=== PATIENT | male | born 1970 | race Caucasian/White ===

== ENCOUNTER 2019-12-31 14:25 | Emergency (ER) | payer MEDICAID, SELFPAY ==
[2019-12-31 14:51] VITALS: BP 149/95; PULSE 78; RESP 21; TEMP 36.5; O2SAT 96; BMI 25.0
[2019-12-31 14:59] LABS: UTC Influenza A Antigen Negative (Negative); UTC Strep Screen (Rapid) Positive (Negative)
[2019-12-31 15:00] LABS: UTC Influenza B Antigen Negative (Negative)
--- NOTE | 2019-12-31 15:24 | HMH.EDUTC ---
[facility] Disposition Clinical Impression: Strep throat Disposition: Home, Self-Care Condition on Discharge: Good Instructions: Strep Throat, DI for Strep Throat Additional Instructions: Drink plenty of fluids. Take tylenol or ibuprofen for pain or fever. Take the medications as directed. Follow up with your regular doctor. GO TO THE ER FOR ANY WORSENING SYMPTOMS Throw your tooth brush away and get a new one. Prescriptions: Amoxicillin/Potassium Clav [Augmentin 875-125 Tablet] 1 tab PO Q12H 10 Days #20 tab Transmission Status: [facility] Referrals: PCP,No [Primary Care Provider] - Forms: Work/School Release Time of Disposition: 15:26 Medical Decision Making - Medical Records Medical records reviewed: No: I reviewed the patient's medical records. - Yunier Inquiry Pt receiving controlled substance: No Vital Signs: 12/31/19 14:51 12/31/19 15:33 Temperature 97.7 F 97.7 F Temperature Source Oral Pulse Rate 78 Pulse Rate [Right Brachial] 78 Respiratory Rate 21 21 Blood Pressure 149/95 H Blood Pressure [Right Arm] 149/95 H Blood Pressure Mean [Right Arm] 113 Blood Pressure Source [Right Arm] Automatic Cuff Blood Pressure Position [Right Arm] Sitting 02 Sat by Pulse Oximetry 96 Oxygen Delivery Method Room Air - Lab Data Lab results reviewed: Yes: I reviewed the patient's lab results. Lab Results 12/31/19 14:46: Influenza Type A Ag Negative, Influenza Type B Ag Negative 12/31/19 14:46: Strep Scn Rapid Clinic Positive A [facility] HPI - General Stated complaint: sore throat,cg,sob rader Time Seen by Provider: 12/31/19 15:24 Mode of Arrival: Ambulatory Source of Information: Patient Limitations: No Limitations Description of Symptoms (Recalled from Triage Doc. by RN): PATIENT C/O NASAL DRAINAGE, HEADACHE, VOMITING, AND LETHARGY SINCE MONDAY HEENT Symptoms (Recalled from RN notes): Yes Resp Symptoms (Recalled from RN notes): No Skin Symptoms (Recalled from RN notes): No MS Symptoms (Recalled from RN notes): No Functional Status (Recalled from RN notes): WNL - History of Present Illness Provider Complaint: He c/o sore throat for the past 3 days. - Related Data Previous Rx's Medication Instructions Recorded Amoxicillin/Potassium Clav 1 tab PO Q12H 10 Days #20 tab 12/31/19 [Augmentin 875-125 Tablet] Allergies Allergy/AdvReac Type Severity Reaction Status Date / Time No Known Allergies Allergy Verified 05/31/18 21:22 - Worker's Comp Is this a Worker's Comp case?: No [facility] History - Hepatitis A Screen Drug use history?: No High risk sexual behaviors?: No History of sexually transmitted infection?: No Currently employed?: No Childcare worker?: No Do you have indoor plumbing?: Yes Do you have electricity?: Yes Attestation statement:: This patient has been screened for Hepatitis A risk factors. I have reviewed the patient's past medical history: Yes - Social History Smoking Status: Current every day smoker Tobacco Type: cigarettes # Packs/Day (cigarettes): 1 Alcohol Intake: never Occupational Status: other ROS Obtained: Yes All systems reviewed & no additional complaints - Constitutional Constitutional: Reports chills, Reports fever(s), Reports poor appetite, Reports malaise - Eyes Eyes: Denies eye discharge - ENT Ears, Nose, Mouth, and Throat: Reports as per HPI Physical Exam - General General appearance: alert, in no apparent distress - Head Head exam: atraumatic, normocephalic, normal inspection - Eye Eye exam: Present: normal appearance, PERRL, EOMI - ENT ENT exam: Present: mucous membranes moist, normal external ear exam - Expanded ENT Exam TM/Canal exam: Bilateral TM: erythema, bulging Mouth exam: Present: normal external inspection Teeth exam: Present: normal inspection Throat exam: Present: tonsillar erythema, tonsillomegaly. Absent: tonsillar exudate, R peritonsillar mass, L peritonsillar m
[2019-12-31 15:33] VITALS: BP 149/95; PULSE 78; RESP 21; TEMP 36.5; O2SAT 96
== END 2019-12-31 15:35 | disposition home or self-care (01) ==
PROVIDERS: Emergency Provider Nurse Practitioner Family
DX: J02.0 Streptococcal pharyngitis (principal); F17.210 Nicotine dependence, cigarettes, uncomplicated
CPT/HCPCS: 87804; 87880; 99201

== ENCOUNTER 2020-01-07 13:32 | Emergency (ER) | payer MEDICAID, SELFPAY ==
[2020-01-07 13:52] VITALS: BP 146/87; PULSE 66; RESP 18; TEMP 36.6; O2SAT 100; BMI 25.7
--- NOTE | 2020-01-07 14:08 | HMH.EDUTC ---
[facility] [place] Clinical Impression: Acute bronchitis Qualifiers: Bronchitis organism: unspecified organism Qualified Code(s): J20.9 - Acute bronchitis, unspecified Sinusitis Qualifiers: Sinusitis location: unspecified location Chronicity: acute Recurrence: non-recurrent Qualified Code(s): J01.90 - Acute sinusitis, unspecified Disposition: Home, Self-Care Condition on Discharge: Good Instructions: Sinusitis, DI for Sinusitis Additional Instructions: Drink plenty of fluids. Take tylenol or ibuprofen for pain or fever. Take the medications as directed. Follow up with your regular doctor. GO TO THE ER FOR ANY WORSENING SYMPTOMS FOLLOW THE DIRECTIONS ON THE COVID-19 HAND OUT THAT WE GAVE YOU REGARDING SELF-ISOLATION UNTIL YOU KNOW YOUR COVID-19 RESULTS Prescriptions: Guaifenesin/Dextromethorphan [Guaifenesin-Dm 200-20 mg/10 ml] 10 ml PO Q6HP PRN #240 liquid PRN Reason: Cough Transmission Status: Received by [facility] predniSONE [Prednisone 20mg Tab] 20 mg PO BID 5 Days #10 tab Transmission Status: Received by [facility] Benzonatate [Tessalon Perle 100mg Cap] 100 mg PO TIDP PRN #30 cap PRN Reason: Cough Transmission Status: Received by [facility] Referrals: PCP,No [Primary Care Provider] - Forms: Work/School Release Time of Disposition: 14:25 Medical Decision Making - Medical Records Medical records reviewed: No: I reviewed the patient's medical records. - Yunier Inquiry Pt receiving controlled substance: No Vital Signs: 01/07/20 13:52 01/07/20 14:32 Temperature 97.8 F 97.8 F Temperature Source Oral Pulse Rate 66 Pulse Rate [Right Brachial] 66 Respiratory Rate 18 18 Blood Pressure 146/87 H Blood Pressure [Right Arm] 146/87 H Blood Pressure Mean [Right Arm] 106 Blood Pressure Source [Right Arm] Automatic Cuff Blood Pressure Position [Right Arm] Sitting 02 Sat by Pulse Oximetry 100 Oxygen Delivery Method Room Air Orders (Tests/Meds): ORDERS Category Date Time Status Covid-19 Nasal PCR Sendout [facility] 01/07/20 14:00 Received [facility] [place] - General Stated complaint: cough Time Seen by Provider: 01/07/20 14:08 Mode of Arrival: Ambulatory Source of Information: Patient Limitations: No Limitations Description of Symptoms (Recalled from Triage Doc. by RN): PATIENT C/O COUGH, EMPLOYER IS WANTING HIM TO BE TESTED FOR COVID HEENT Symptoms (Recalled from RN notes): No Resp Symptoms (Recalled from RN notes): Yes Skin Symptoms (Recalled from RN notes): No MS Symptoms (Recalled from RN notes): No Functional Status (Recalled from RN notes): WNL - History of Present Illness Provider Complaint: He was here last week with sinusitis and bronchitis. He states that he is feeling much better, but he has been coughing at work and his coworkers want him to be tested for COVID-19. He denies any fever or chills. - Related Data Previous Rx's Medication Instructions Recorded Amoxicillin/Potassium Clav 1 tab PO Q12H 10 Days #20 tab 12/31/19 [Augmentin 875-125 Tablet] Benzonatate [Tessalon Perle 100mg 100 mg PO TIDP PRN #30 cap 01/07/20 Cap] Guaifenesin/Dextromethorphan 10 ml PO Q6HP PRN #240 liquid 01/07/20 [Guaifenesin-Dm 200-20 mg/10 ml] predniSONE [Prednisone 20mg 20 mg PO BID 5 Days #10 tab 01/07/20 Tab] Allergies Allergy/AdvReac Type Severity Reaction Status Date / Time No Known Allergies Allergy Verified 05/31/18 21:22 - Worker's Comp Is this a Worker's Comp case?: No [facility] [place] History - Hepatitis A Screen Drug use history?: No High risk sexual behaviors?: No History of sexually transmitted infection?: No Currently employed?: No Childcare worker?: No Do you have indoor plumbing?: Yes Do you have electricity?: Yes Attestation statement:: This patient has been screened for Hepatitis A risk factors. I have reviewed the patient's past medical history: Yes - Social History Smoking Status: Curr
[2020-01-07 14:32] VITALS: BP 146/87; PULSE 66; RESP 18; TEMP 36.6; O2SAT 100
[2020-01-08 15:34] LABS: Covid-19 Nasal PCR Sendout Lex Not Detected
== END 2020-01-07 14:35 | disposition home or self-care (01) ==
PROVIDERS: Emergency Provider Nurse Practitioner Family
DX: J20.9 Acute bronchitis, unspecified (principal); J01.90 Acute sinusitis, unspecified; Z03.818 Encounter for observation for suspected exposure to other biological agents ruled out; F17.210 Nicotine dependence, cigarettes, uncomplicated
CPT/HCPCS: 99201; U0004

== ENCOUNTER → 2021-01-06 12:12 | Outpatient (CLI) | payer MEDICAID, SELFPAY | PROVIDERS: Visit Provider Nurse Practitioner | DX: Z20.822 Contact with and (suspected) exposure to COVID-19 (principal) | CPT/HCPCS: C9803; U0003; U0005 ==